=== PATIENT | male | born 1955 | race Caucasian/White ===

== ENCOUNTER 2020-05-28 07:46 | Outpatient (NON) | payer MEDICARE, SELFPAY ==
[2020-05-28 18:19] LABS: SARS-CoV-2 RNA PCR Positive
== END 2020-05-28 07:47 ==
PROVIDERS: PCP Internal Medicine; Visit Provider Internal Medicine
DX: U07.1 COVID-19 (principal)
CPT/HCPCS: 87635; C9803; U0003

== ENCOUNTER 2021-07-24 00:14 | Day surgery (SDC) | payer MEDICARE, SELFPAY ==
[2021-06-30 14:31] VITALS: BMI 30.9
--- NOTE | 2021-07-23 14:38 | PM.HPGS ---
History of Present Illness History of Present Illness Consent: Risks, benefits, and alternatives have been discussed and questions answered. Patient agrees to proceed with procedure. Chief complaint: hx of colon polyps Narrative: Ayaan An is a 66 year old male referred for colon cancer screening. He has a history of having polyps Review of Systems Review of Systems: All systems reviewed & are unremarkable except as noted in HPI and below PMFSH Past Medical History Medical History COVID-19 Surgical History Surgical History H/O colonoscopy Hx of tonsillectomy Family History Family History Father Family history of cardiovascular disease, Onset Age: 66 Mother Family history of cardiovascular disease, Onset Age: 81 Social History Social History Smoking status: Never smoker Second hand tobacco smoke exposure: No Alcohol intake: never Substance use: never Substance use type: does not use Living arrangements: with family Spiritual care concerns: No Meds Home Medications and Allergies Home Medications Medication Instructions Recorded Confirmed Type aspirin 81 mg tablet,delayed 81 mg PO DAILY 11/22/20 06/30/21 History release amlodipine 10 mg tablet See Rx Instructions .ROUTE 06/03/21 06/30/21 Rx .COMPLEX #90 tablet Allergies Allergy/AdvReac Type Severity Reaction Status Date / Time No Known Allergies Allergy Mild Verified 07/24/21 10:09 Exam Resp: Auscultation: clear to auscultation bilaterally Cardio: Rate: regular rate Rhythm: regular rhythm GI: GI Palp: Yes Soft to palpation and No Tenderness to palpation present (GI) Assessment and Plan Assessment and plan (1) Colon cancer screening: Code(s): Z12.11 - Encounter for screening for malignant neoplasm of colon Status: Acute Assessment and Plan: Colonoscopy with possible biopsy or polypectomy or cautery or injection of substances.
[2021-07-24 10:10] VITALS: BP 166/82; PULSE 86; RESP 18; TEMP 36.5; O2SAT 98
[2021-07-24] MEDS: LACTATED RINGERS 1,000 ML 150 ML IV CONT (10:19)
--- NOTE | 2021-07-24 10:19 | WPDANESEPPF ---
Anes - Initial Pre Proc Eval Procedure: Operation Date: 07/24/21 11:15 Proposed Procedures p Screening Colonoscopy - Rizwan Webb MD Date/Time: 07/24/21 10:19 Surgeon: Rizwan Webb MD Pre Op Diagnosis: hx of colon polyps Patient Data Age: 66 Gender: M Height: 1.78 m Weight: 104.5 kg Last Vital Signs Temp 36.5 C 07/24/21 10:10 Pulse 86 07/24/21 10:10 Resp 18 07/24/21 10:10 BP 166/82 H 07/24/21 10:10 Pulse Ox 98 07/24/21 10:10 Allergies Allergy/AdvReac Type Severity Reaction Status Date / Time No Known Allergies Allergy Mild Verified 07/24/21 10:09 Home Medications Medication Instructions Recorded Confirmed Type aspirin 81 mg tablet,delayed 81 mg PO DAILY 11/22/20 06/30/21 History release amlodipine 10 mg tablet See Rx Instructions .ROUTE 06/03/21 06/30/21 Rx .COMPLEX #90 tablet Patient hx anesthesia problems: none Family hx anesthesia problems: none Results Review: All pre-operative results and documents have been reviewed as part of the pre-operative evaluation. [facility] Past Medical History Medical History (Updated 07/23/21 @ 14:39 by Rizwan Webb MD) COVID-19 Surgical History Surgical History (Updated 07/24/21 @ 10:21 by Ayaan Vasques MD) H/O colonoscopy Hx of tonsillectomy Family History Family History Father Family history of cardiovascular disease, Onset Age: 66 Mother Family history of cardiovascular disease, Onset Age: 81 Social History Social History Smoking status: Never smoker Second hand tobacco smoke exposure: No Alcohol intake: never Substance use: never Substance use type: does not use Living arrangements: with family Spiritual care concerns: No Anes - Eval Final PreProcedure Day of Procedure 07/24/21 10:19 Patient weight: obese Heart: regular rate and rhythm Lungs: clear to auscultation Airway: Mallampati scale class II Neurological: alert and oriented Last oral intake: >/= 8 hours ASA classification: II Emergent: no Anesthetic plan: proceed Anesthesia type and monitoring: general GIVS and standard monitoring Results Review: All pre-operative results and documents have been reviewed as part of the pre-operative evaluation. Informed Consent: The patient's anesthetic plan and its attendant risks and benefits were discussed with the patient/family/POA. Questions were solicited and answers provided to the satisfaction of the patient/family/POA.
[2021-07-24] MEDS: SIMETHICONE ORAL SUSPENSION 20 MG/0.3 ML 30 ML BOTTLE 0.6 ML IRRIGATION (10:38)
[2021-07-24 10:47] VITALS: BP 126/79; PULSE 81; RESP 17; O2SAT 98
[2021-07-24 10:57] VITALS: BP 129/88; PULSE 73; RESP 22; O2SAT 99
[2021-07-24 11:07] VITALS: BP 150/95; PULSE 72; RESP 19; O2SAT 99
== END 2021-07-24 11:18 | disposition home or self-care (01) ==
PROVIDERS: PCP Internal Medicine; Visit Provider Internal Medicine Gastroenterology
PROC: 0DJD8ZZ Inspection of Lower Intestinal Tract, Via Natural or Artificial Opening Endoscopic (ICD-10-PCS; CPT 45378; principal; 2021-07-24 11:15)
DX: Z12.11 Encounter for screening for malignant neoplasm of colon (principal); K57.30 Diverticulosis of large intestine without perforation or abscess without bleeding; Z86.010 Personal history of colon polyps; Z79.82 Long term (current) use of aspirin; Z86.16 Personal history of COVID-19; E66.9 Obesity, unspecified; Z68.33 Body mass index [BMI] 33.0-33.9, adult
CPT/HCPCS: G0105; J2704; J7120

== ENCOUNTER 2022-01-12 09:48 | Outpatient (CLI) | payer MEDICARE, SELFPAY ==
--- NOTE | ~2022-01-12 | NM_ITS ---
EXAMINATION: NM bone scan whole body DATE: 01/12/2022 14:11 INDICATION: Bone lesion. TECHNIQUE: 22.3 mCi Tc-99m HDP was administered intravenously. Delayed whole-body scintigrams were o btained. COMPARISON: CT abdomen and pelvis 03/10/2010 FINDINGS: There are foci of increased activity in the feet without radiographic comparison, likely os teoarthritis. There is levoscoliosis of lumbar spine. There are foci of joint-centered increased acti vity in the spine, likely osteoarthritis. IMPRESSION: 1. No evidence of malignancy. Reviewed, dictated and finalized at location A.
== END 2022-01-12 09:49 | disposition home or self-care (01) ==
PROVIDERS: PCP Internal Medicine; Visit Provider Urology
DX: M89.9 Disorder of bone, unspecified (principal)
CPT/HCPCS: 78306; A9561

== ENCOUNTER 2022-02-26 09:44 | Outpatient (CLI) | payer MEDICARE, SELFPAY ==
--- NOTE | 2022-02-26 10:41 | ECG_ITS ---
Measurements Intervals [place] Rate: 77 P: 4 NE: 114 QRS: -5 QRSD: 117 T: -14 QT: 368 QTc: 419 Interpretive Statements SINUS RHYTHM WITH SHORT NE INTERVAL INTRAVENTRICULAR CONDUCTION DELAY POOR R WAVE PROGRESSION, ANTERIOR LEADS CONSIDER INFERIOR INFARCT, AGE INDETERMINATE BASELINE ARTIFACT- I, III, AVR, AVL, V4-V5 ABNORMAL ECG NO PREVIOUS ECG AVAILABLE FOR COMPARISON Electronically Signed On 02-26-2022 11:11:46 CDT by Jaswinder Bateman D.O.
[2022-02-26 11:12] LABS: Basophils Percent Auto 0.7 % (0.2-1.2); Eosinophils Absolute Auto 0.1 K/mm3 (0-0.3); Eosinophils Percent Auto 2.4 % (0-4.4); Hemoglobin 14.1 g/dL (14.0-18.0); Immature Granulocyte Absolute 0.02 K/mm3 (0.00-0.031); Immature Granulocyte Percent A 0.3 % (0-0.5); Lymphocytes Absolute Auto 1.61 K/mm3 (0.9-3.2); Lymphocytes Percent Auto 27.9 % (18.3-44.2); Mean Corpuscular HGB Conc 32.8 g/dl (32-36); Mean Corpuscular Hemoglobin 29.3 pg (26-34); Mean Corpuscular Volume 89.4 fl (80-100); Mean Platelet Volume 10.5 fl (7.4-10.4); Monocytes Absolute Auto 0.6 K/mm3 (0.1-0.6); Monocytes Percent Auto 9.5 % (2.6-8.5); Neutrophils Absolute Auto 3.4 K/mm3 (1.3-6.7); Neutrophils Percent Auto 59.2 % (45.5-73.1); Platelet Count Result 265 k/mm3 (150-375); Red Blood Count 4.81 M/mm3 (4.6-6.20); Red Cell Distribution Width 13.8 % (11.5-14.5); White Blood Count 5.8 K/mm3 (4.5-10.0)
[2022-02-26 11:19] LABS: INR 1.1; Prothrombin Time 13.5 Seconds (11.1-14.7)
[2022-02-26 11:20] LABS: Partial Thromboplastin Time 26.8 SECONDS (22.3-36.8)
[2022-02-26 11:28] LABS: Alanine Aminotransferase 26 U/L (6-50); Albumin Level 4.3 g/dL (3.5-5.1); Alkaline Phosphatase 94 U/L (38-126); Anion Gap 10 mmol/L (8-16); Aspartate Amino Transferase 31 U/L (17-59); Bilirubin,Total 0.5 mg/dL (0.2-1.3); Blood Urea Nitrogen 15 mg/dL (9-20); Calcium 9.3 mg/dL (8.4-10.2); Carbon Dioxide 26 mmol/L (22-30); Chloride 107 mmol/L (98-107); Estimated Glomerular Filt Rate > 60; Glucose 109 mg/dL (65-110); Potassium 3.9 mmol/L (3.4-5.0); Sodium 143 mmol/L (137-145)
== END 2022-02-26 09:45 | disposition home or self-care (01) ==
LOC: ANHSURGERY 10:00
PROVIDERS: PCP Internal Medicine; Visit Provider Urology
DX: C61 Malignant neoplasm of prostate (principal); I10 Essential (primary) hypertension; Z01.818 Encounter for other preprocedural examination; I45.9 Conduction disorder, unspecified
CPT/HCPCS: 36415; 80053; 85025; 85610; 85730; 86850; 86900; 86901; 87086; 93005

== ENCOUNTER 2022-03-10 01:55 | Day surgery (SDC) | payer MEDICARE, SELFPAY ==
[2022-02-26 10:17] VITALS: BMI 32.1
--- NOTE | 2022-02-26 10:19 | PC.NURSE ---
Report to the Outpatient Waiting Room, entrance under the green pavilion located off [facility], at time __0600 on date _03/10/22 . OR Time: __07 . Time changes happen often and if your time is changed the preop area will call you the afternoon before. - You and your visitor will be asked to self-screen and do not enter if you have any COVID symptoms. - Only one visitor and NO children visitors are allowed at this time. - The patient visitor is requested to leave or wait in car when not with patient due to restrictions. - A mask is required within the hospital. Patients may have clear liquids (water, carbonated beverages, clear teas, apple juice) until 3 hours prior to surgery (0430)with a maximum of 20 ounces. - No food from midnight until time of surgery Take the following medications with a SIP of water the morning of surgery: AMLODIPINE Medications to discontinue per physician ____ PT STATES ASPIRIN AND MULTIVITAMIN 7 DAYS PRE OP PER DR MERCADO Date to take last dose 03/02/22 Please no make-up, nail cape verdean, hairspray, perfume, deodorant, or body powder the day of surgery. No jewelry (including any body piercings) or valuables the day of surgery, leave them at home. Please take a shower or bath the night before, or the morning of, surgery with an antibacterial soap. Wear comfortable, loose fitting clothing. Children are encouraged to wear pajamas. - Jewelry must be removed prior to entering the operating room. Rings and piercings that are not removed may be cut off. - The hospital will not accept responsibility for valuables. - Please leave all valuables, including medications, at home the day of surgery. If you are going home after surgery, a licensed utility worker driver must drive you home. - NO public transportation without another adult. - We recommend that an adult stay with you for 24 hours following discharge. - We also recommend that you do not drive, make important decision, drink alcoholic beverages, or take any drugs that were not prescribed by your health care provider for at least 24 hours after your discharge time. For Pediatric surgeries, we recommend two adults accompany the child home (only one inside the building at this time). Follow any additional instructions given to you from your surgeon. If you or anyone in your household have experienced Covid symptoms in the past week, please notify your surgeon or the nurse liaison at the phone number below for possible testing. VERBAL AND WRITTEN instructions given to __PATIENT and asked if any additional questions and then verbalized understanding. Patient advised to call surgeon office or pre surgery nurse liaison [phone] if any additional questions.
[2022-02-26 10:35] VITALS: BP 152/86; PULSE 80; RESP 18; TEMP 37; O2SAT 100
--- NOTE | 2022-03-09 14:21 | WPDANESEPPF ---
Anes - Initial Pre Proc Eval Procedure: Operation Date: 03/10/22 07:30 Proposed Procedures p Robotic Assisted Nerve Sparing Prostatectomy with Possible Pelvic Lymph Node Dissection - Ru Bower MD Date/Time: 03/09/22 14:21 Surgeon: Ru Bower MD Pre Op Diagnosis: prostate cancer Patient Data Age: 67 Gender: M Height: 1.8 m Weight: 104.7 kg Last Vital Signs Temp 98.6 F 02/26/22 10:35 Pulse 80 02/26/22 10:35 Resp 18 02/26/22 10:35 BP 152/86 H 02/26/22 10:35 Pulse Ox 100 02/26/22 10:35 O2 Del Method Room Air 02/26/22 10:35 Allergies Allergy/AdvReac Type Severity Reaction Status Date / Time No Known Allergies Allergy Mild Verified 02/26/22 10:06 Home Medications Medication Instructions Recorded Confirmed Type aspirin 81 mg tablet,delayed 81 mg PO DAILY 11/22/20 02/26/22 History release (Adult Low Dose Aspirin) amlodipine 10 mg tablet See Rx Instructions .Route 02/18/22 02/26/22 Rx .COMPLEX #90 tabs duwltjau-ueu-eadyh acid 300 1 tablet PO DAILY 02/26/22 02/26/22 History mcg-lycopene 600 mcg-lutein 300 mcg tablet (Centrum Silver Men) Patient hx anesthesia problems: none Family hx anesthesia problems: none Results Review: All pre-operative results and documents have been reviewed as part of the pre-operative evaluation. [facility] Past Medical History Medical History (Updated 03/09/22 @ 14:21 by Naseem Morales MD) COVID-19 Hypertension Prostate cancer Surgical History Surgical History H/O colonoscopy Hx of tonsillectomy Family History Family History Father Family history of cardiovascular disease, Onset Age: 66 Mother Family history of cardiovascular disease, Onset Age: 81 Social History Social History Smoking status: Never smoker Second hand tobacco smoke exposure: No Alcohol intake: never Substance use: never Substance use type: does not use Living arrangements: with family Spiritual care concerns: No Anes - Eval Final PreProcedure Day of Procedure 03/09/22 14:21 Patient weight: obese Heart: regular rate and rhythm Lungs: clear to auscultation Airway: Mallampati scale class II Neurological: alert and oriented Last oral intake: >/= 8 hours ASA classification: III Emergent: no Anesthetic plan: proceed Anesthesia type and monitoring: general ETT and standard monitoring Results Review: All pre-operative results and documents have been reviewed as part of the pre-operative evaluation. Informed Consent: The patient's anesthetic plan and its attendant risks and benefits were discussed with the patient/family/POA. Questions were solicited and answers provided to the satisfaction of the patient/family/POA.
[2022-03-10] VITALS (16 sets, daily range): BP systolic 102–154; BP diastolic 66–92; PULSE 73–92; RESP 14–18; TEMP 35.6–36.9; O2SAT 92–99
[2022-03-10] MEDS: LACTATED RINGERS 1,000 ML 30 ML IV CONT ×3 (06:45→13:51)
--- NOTE | 2022-03-10 07:17 | WPDHPUPDATE1 ---
History and Physical Update Update Date/Time: 03/10/22 07:17 History and Physical has been reviewed, including an updated exam of the patient. There are NO changes in the patient's condition. Risks, benefits, and alternatives have been discussed and questions answered. Patient agrees to proceed with procedure. Proceed with robotic assist nerve sparing prostatectomy with possible PLND
[2022-03-10] MEDS: ceFAZolin 2 GM/D5W 50 ML 2 GM/50 ML BAG IVPB (07:26)
[2022-03-10] MEDS: ceFAZolin SODIUM 1 GM VIAL IV PUSH (11:31)
--- NOTE | 2022-03-10 12:06 | W.PM.PROC2 ---
Procedure Note - Detailed Date of Procedure 03/10/22 Pre-op Diagnosis prostate cancer Post-op Diagnosis Same Procedure Performed Robotic assisted nerve-sparing prostatectomy with bilateral pelvic lymphadenectomy Surgeon Ru Bower MD Anesthesia General Description of Procedure Patient is taken the operative suite correctly identified. Once anesthesia was obtained was placed in low-lying dorsal lithotomy position prepped draped usual sterile fashion. All pressure points were padded. Eighteen Slovak Carballo was placed with 15 cc in the balloon. Supraumbilical incision was then made carried down to the rectus fascia. Veress needle was inserted into the abdominal cavity insufflated to 15 mmHg pressure. Camera trocar port was placed under direct vision. Working ports were placed in their appropriate locations. Patient was placed in steep Trendelenburg position and the robot was docked. Posterior approach was then taken. He did have some adhesions of the sigmoid colon which were taken down. Seminal vesicles were dissected down their entirety the vas were transected. Plane between the prostate and rectum was developed. Bladder was taken down. Space of Retzius was developed bilaterally. Puboprostatic were incised. He has extremely large amount of dorsal venous veins which are extremely prominent. We placed a dorsal venous suture was using 0 Vicryl and secured to the pubic bone. Bladder neck was then opened. Bladder neck sparing procedure was then performed. Posterior layer was incised the seminal vesicles were visualized. Pedicles were clipped. Bilateral nerve-sparing was performed in standard fashion. Dorsal venous complex was then transected. Urethra was also transected. Specimen was placed in Endo-Catch bag. Bilateral pelvic lymphadenectomies were then performed with the boundaries being the external iliac vein, obturator nerve, Ryan's ligament, bifurcation of the vessels. Proximal distal ends of these were clipped. The left lymph node packet had a clip placed on it for identification. A Santy stitch was then placed using 0 Vicryl. Anastomosis was performed with 3-0 V lock suture. He is somewhat thin walled on the right posterior bladder neck area. There appeared to be good approximation mucosa at this time. Sixteen Carballo was then placed and inflated with 10 cc sterile water. Bladder was filled with 200 cc of normal saline. There was no evidence of extravasation at this time. All lap count needle count sponge counts were correct at this point time. The robot was undocked. The midline incision was extended and the specimen was brought out with the Endo-Catch bag. Rectus fascia was closed using 0 Vicryl in a running fashion. Subcuticular stitches were then placed. A Jeet-Alfredo drain was placed in the 4th arm port site and secured. Patient is taken recovery stable condition. Estimated Blood Loss 100 Drains Yes Packing No Pathology Yes Complications No immediate complications Condition Stable Disposition PACU
[2022-03-10] MEDS: fentaNYL CITRATE INJ (*CRX) 100 MCG/2 ML VIAL 25 MCG IV PUSH ×4 (12:39→13:30)
--- NOTE | 2022-03-10 13:45 | SUR.PHASEI ---
1340 DR MERCADO AT BEDSIDE- AWARE OF DECREASED URINE OUTPUT. IRRIGATED RONQUILLO CATHETER WITHOUT DIFFICULTY. URINE COLOR YELLOW WITHOUT CLOTS NOTED.
--- NOTE | 2022-03-10 14:32 | PC.NURSE ---
This patient, Ayaan An, was admitted to 3 [facility] Surg Room 309-01. Patient/family oriented to hospital policies and general routines including ID bracelet, bed and alarms, visiting hours, pain management, procedures, bathroom and other care routines, personal items, smoking policy, room service/diet, and visiting hours. Information on how to activate the Rapid Response Team has been discussed. Patient/Family are encouraged to report perceived risks to care and to ask questions if they do not understand what they are told or what they should do.
[2022-03-10] MEDS: HYDROcodone/acetaminophen (*CRX) 5-325 MG TABLET 1 TAB PO (15:01)
[2022-03-10] MEDS: LACTATED RINGERS 1,000 ML 125 ML IV CONT ×2 (15:02→22:51)
[2022-03-10] MEDS: DOCUSATE SODIUM 100 MG CAPSULE PO (16:48)
[2022-03-10] MEDS: ONDANSETRON INJ 4 MG/2 ML VIAL IV PUSH (19:15)
[2022-03-10] MEDS: KETOROLAC 15 MG/ML VIAL (*BKC) IV PUSH (20:12)
[2022-03-11 00:10] VITALS: BP 130/85; PULSE 95; RESP 20; TEMP 36.6; O2SAT 96
[2022-03-11 04:10] VITALS: BP 142/89; PULSE 80; RESP 20; TEMP 36.4; O2SAT 94
[2022-03-11 06:07] LABS: Hematocrit 39.1 % (42.0-52.0)
[2022-03-11] MEDS: KETOROLAC 15 MG/ML VIAL (*BKC) IV PUSH (06:20)
[2022-03-11] MEDS: LACTATED RINGERS 1,000 ML 125 ML IV CONT (06:21)
[2022-03-11 06:34] LABS: Anion Gap 7 mmol/L (8-16); Blood Urea Nitrogen 13 mg/dL (9-20); Calcium 8.4 mg/dL (8.4-10.2); Carbon Dioxide 25 mmol/L (22-30); Chloride 107 mmol/L (98-107); Estimated CRCL calculation 68 ml/min; Estimated Glomerular Filt Rate > 60; Glucose 120 mg/dL (65-110); Potassium 3.8 mmol/L (3.4-5.0); Sodium 139 mmol/L (137-145)
[2022-03-11 07:38] VITALS: O2SAT 98
[2022-03-11 08:06] VITALS: BP 132/85; PULSE 83; RESP 20; TEMP 36.6; O2SAT 96
[2022-03-11] MEDS: amLODIPine BESYLATE 5 MG TABLET 10 MG PO (08:37)
[2022-03-11] MEDS: levoFLOXacin 500 MG TABLET PO (08:37)
[2022-03-11] MEDS: DOCUSATE SODIUM 100 MG CAPSULE PO (08:37)
--- NOTE | 2022-03-11 09:28 | WPDANESPN ---
Anes - Prog Note Post-Op Date/Time: 03/11/22 09:28 Cardiovascular status: normal Respiratory status: normal Airway patency: baseline Mental status: baseline Post-Op hydration status: normal Vital Signs: Last Vital Signs Temp 97.8 F 03/11/22 08:06 Pulse 83 03/11/22 08:06 Resp 20 03/11/22 08:06 BP 132/85 03/11/22 08:06 Pulse Ox 96 03/11/22 08:06 O2 Del Method Nasal Cannula 03/11/22 07:38 O2 Flow Rate 1.5 03/11/22 07:38 Pain Score (VAS): 0/10 I/O: Intake & Output 03/10/22 03/11/22 03/11/22 23:59 07:59 15:59 Intake Total 1000 1200 120 Output Total 50 2020 Balance 950 -820 120 Laboratory Tests 03/11/22 05:31 03/11/22 05:31 03/11/22 03/11/22 05:31 05:31 Hgb 13.0 L Hct 39.1 L Sodium 139 Potassium 3.8 Chloride 107 Carbon Dioxide 25 Anion Gap 7 L BUN 13 Creatinine 1.10 Estim Creat Clear Calc 68 Estimated GFR > 60 Glucose 120 H Calcium 8.4 Post-procedural complaints: none Patient Feedback: Patient satisfied with anesthetic care.
[2022-03-11 12:10] VITALS: BP 134/83; PULSE 82; RESP 20; TEMP 36.6; O2SAT 95
--- NOTE | 2022-03-11 13:02 | WPDUROPN2 ---
Progress Note: A&P Assessment and Plan (1) Prostate cancer: Code(s): C61 - Malignant neoplasm of prostate Status: Acute Plan GLORY drain can be removed and a dry dressing placed over the drain site, secured with tape. Keep hwang in until next week's cystogram. Ok to discharge home. Subjective Subjective Date/Time Seen: 03/11/22 13:02 Robotic Assisted Nerve Sparing Prostatectomy with bilateral pelvic Lymphadenectomy H&H Stable, tolerating diet, activity and pain well. Up in the room and sitting in the chair. Passing flatus. His drain has decreasing amounts of blood drainage overall. It was emptied this afternoon with only 30cc of fluid for >5 hours. Post Op day: 1 Review of Systems Respiratory: Respiratory: Reports no additional respiratory complaints Gastrointestinal: Gastrointestinal: Reports abdominal pain (at inicsions only, mild) Genitourinary: Genitourinary: Denies hematuria and Denies flank pain Exam Const: General: comfortable Resp: Effort & Inspection: normal respiratory effort Cardio: Rate: regular rate GI: Inspection: incision (drain is intact draining bloody drainage with dry gauze pad around it. ) GI Palp: Yes Soft to palpation and Yes Tenderness to palpation present (GI) (at inicisions only, well approximated, no drainage) : General: Yes no CVA tenderness Meatus: Blood at meatus present Urinary Catheter: Urinary Catheter: patent and draining and urine clear Extrem: Right lower extremity: no edema Left lower extremity: no edema Objective Data Vital Signs Vital Signs: Vital Signs - 24 hr 03/10/22 13:15 03/10/22 13:30 03/10/22 13:45 Temperature Pulse Rate 75 81 74 Respiratory Rate 14 16 16 Blood Pressure 123/73 122/74 123/76 Pulse Oximetry 92 93 97 Oxygen Delivery Nasal Cannula Nasal Cannula Nasal Cannula Oxygen Flow Rate 2 2 2 03/10/22 14:00 03/10/22 14:15 03/10/22 14:25 Temperature 97.0 F L 96.1 F L Pulse Rate 77 78 79 Respiratory Rate 16 16 16 Blood Pressure 119/73 117/77 131/73 Pulse Oximetry 95 98 92 Oxygen Delivery Nasal Cannula Nasal Cannula Oxygen Flow Rate 2 2 03/10/22 14:40 03/10/22 15:10 03/10/22 16:10 Temperature 96.1 F L 96.3 F L 96.3 F L Pulse Rate 81 81 87 Respiratory Rate 14 18 16 Blood Pressure 128/69 132/75 133/75 Pulse Oximetry 93 93 93 Oxygen Delivery Oxygen Flow Rate 03/10/22 20:00 03/10/22 20:10 03/11/22 00:10 Temperature 97.7 F 98 F Pulse Rate 92 95 Respiratory Rate 18 20 Blood Pressure 135/92 H 130/85 Pulse Oximetry 97 95 96 Oxygen Delivery Nasal Cannula Oxygen Flow Rate 1 03/11/22 04:10 03/11/22 07:38 03/11/22 08:06 Temperature 97.6 F 97.8 F Pulse Rate 80 83 Respiratory Rate 20 20 Blood Pressure 142/89 H 132/85 Pulse Oximetry 94 98 96 Oxygen Delivery Nasal Cannula Oxygen Flow Rate 1.5 03/11/22 12:10 Temperature 98 F Pulse Rate 82 Respiratory Rate 20 Blood Pressure 134/83 Pulse Oximetry 95 Oxygen Delivery Oxygen Flow Rate Intake/Output Intake/Output: Intake & Output 03/08/22 03/09/22 03/10/22 03/11/22 23:59 23:59 23:59 23:59 Intake Total 1950 1380 Output Total 120 2020 Balance 1830 -640 Meds/Results Medications: Active Medications Generic Name Dose Route Start Last Admin Trade Name Freq PRN Reason Stop Dose Admin Hydrocodone Bitart/Acetaminophen 1 tab 03/10/22 14:25 03/10/22 15:01 Hydrocodone/Acetaminophen (*Crx) 5-325 Mg Tablet PO 1 tab Q6H PRN Administration Pain Rated 1-3 Hydrocodone Bitart/Acetaminophen 2 tab 03/10/22 14:25 Hydrocodone/Acetaminophen (*Crx) 5-325 Mg Tablet PO Q6H PRN Pain Rated 4-6 Amlodipine Besylate 10 mg 03/11/22 09:00 03/11/22 08:37 Amlodipine Besylate 5 Mg Tablet PO 10 mg DAILY ARABELLA Administration Docusate Sodium 100 mg 03/10/22 17:00 03/11/22 08:37 Docusate Sodium 100 Mg Capsule PO 100 mg BID ARABELLA Administration Hyoscyamine 0.125 mg 03/10/22 14:25 Hyoscyamine
== END 2022-03-11 15:11 | disposition home or self-care (01) ==
LOC: ANHSURGERY 06:02 → ANH3MEDSUR 14:29
PROVIDERS: PCP Internal Medicine; Visit Provider Urology
PROC: 0VT04ZZ Resection of Prostate, Percutaneous Endoscopic Approach (ICD-10-PCS; CPT 55867; principal; 2022-03-10 07:30)
DX: C61 Malignant neoplasm of prostate (principal); K66.0 Peritoneal adhesions (postprocedural) (postinfection); I10 Essential (primary) hypertension; Z86.16 Personal history of COVID-19; Z79.82 Long term (current) use of aspirin; E66.9 Obesity, unspecified; Z68.31 Body mass index [BMI] 31.0-31.9, adult
CPT/HCPCS: 55866; 38571; S2900; 36415; 80048; 85014; 85018; 88309; 88342; A9270; J0690; J1100; J1170; J1885; J2250; J2370; J2405; J2704; J2710; J3010; J7030; J7120

== ENCOUNTER 2022-03-18 12:57 | Outpatient (CLI) | payer MEDICARE, SELFPAY ==
--- NOTE | ~2022-03-18 | XR_ITS ---
EXAMINATION: XR cystogram DATE: 03/18/2022 13:36 INDICATION: Patient one week status post prostatectomy TECHNIQUE: Water-soluble contrast was gravity-infused through the patient's Carballo catheter. Multiple fluoroscopic images were obtained. Fluoroscopy exposure time was 0.9 minutes. The DAP for this proced ure was 46.828 Gycm2. COMPARISON: None. FINDINGS: There is extravasation of contrast at the right base of the bladder. The bladder contour is normal. Phleboliths are noted in the pelvis. The bowel gas pattern is normal. There is partially tia ged thoracolumbar levoscoliosis. There is mild osteoarthritis of the hips. IMPRESSION: 1. Contrast extravasation near the right base of the bladder. Reviewed, dictated and finalized at location A.
== END 2022-03-18 12:58 | disposition home or self-care (01) ==
PROVIDERS: PCP Internal Medicine; Visit Provider Urology
DX: C61 Malignant neoplasm of prostate (principal)
CPT/HCPCS: 51600; 74430; Q9967

== ENCOUNTER 2022-04-01 09:10 | Outpatient (CLI) | payer MEDICARE, SELFPAY ==
--- NOTE | ~2022-04-01 | XR_ITS ---
EXAMINATION: XR cystogram DATE: 04/01/2022 09:38 INDICATION: Malignant neoplasm of prostate status post prostatectomy. TECHNIQUE: Water-soluble contrast was gravity-infused through the patient's Carballo catheter. Multiple fluoroscopic images were obtained. Fluoroscopy exposure time was 0.2 minutes. The total number of tia ges was 8. COMPARISON: Cystogram 03/18/2022 FINDINGS: There is no extraluminal leakage of contrast. There is no ureteral reflux. IMPRESSION: 1. No extraluminal leakage of contrast. Reviewed, dictated and finalized at location A.
== END 2022-04-01 09:11 | disposition home or self-care (01) ==
PROVIDERS: PCP Internal Medicine; Visit Provider Urology
DX: C61 Malignant neoplasm of prostate (principal)
CPT/HCPCS: 51600; 74430; Q9967